=== PATIENT | female | born 1955 | race Caucasian/White ===

== ENCOUNTER 2019-10-14 08:41 | Outpatient (CLI) | payer OTHER | END 2019-10-14 21:07 | disposition home or self-care (01) | LOC: SMA 08:41 | PROVIDERS: ATTEND Internal Medicine | DX: Z12.31 Encounter for screening mammogram for malignant neoplasm of breast (principal) | CPT/HCPCS: 77067 ==

== ENCOUNTER 2019-11-12 21:05 | Inpatient (IN) | payer OTHER ==
[~2019-11-12] VITALS: Ht 161.3 cm; Wt 54.5 kg
--- NOTE | 2019-11-12 21:05 | NUR ---
Placed in room 01 . Placed on cardiac nurse practitioner, blood pressure machine and pulse oximeter. To gown for exam. Side rails up.
--- NOTE | 2019-11-12 21:06 | NUR ---
Pt AAOx4 ambulated into ED c/o R sided numbness and tingling starting from R foot radiating up to R side since 0730 this morning. NIHSS 0. Skin pink dry and warm, breathing even and unlabored. Accucheck 413. No other injuries/complaints per pt/noted. Will continue to monitor.
--- NOTE | 2019-11-12 21:12 | NUR ---
ER at bedside examining patient.
[2019-11-12 21:13] VITALS: BP_SYST 123; BP_SYST 208
--- NOTE | 2019-11-12 21:15 | NUR ---
EKG DONE AT BEDSIDE
--- NOTE | 2019-11-12 21:21 | NUR ---
Verbal order received from Dr. Werner to administer 1 L of NS.
--- NOTE | 2019-11-12 21:21 | NUR ---
Accucheck was done : 413. Dr. Werner made aware.
[2019-11-12] MEDS ORDERED: NACL 0.9% 1,000 ML IV ONE (21:30)
[2019-11-12 21:41] LABS: ANION GAP 8 (5-15); BASOPHILS % (AUTO) 0.6 % (0.0-2.0); CALCIUM 9.7 mg/dL (8.4-11.0); CHLORIDE 95 mmol/L (98-107); CREATININE 0.72 mg/dL (0.55-1.30); EOSINOPHILS # (AUTO) 0.1 K/uL (0.0-0.4); EOSINOPHILS % (AUTO) 1.1 % (0.0-4.0); HEMATOCRIT 43.2 % (36-48); HEMOGLOBIN 14.5 g/dL (12.0-16.0); LYMPHOCYTES # (AUTO) 2.5 K/uL (1.0-5.5); LYMPHOCYTES % (AUTO) 42.7 % (20.5-51.5); MEAN CORPUSCULAR HEMOGLOBIN 30 pg (27-31); MEAN CORPUSCULAR HGB CONC 34 % (32-36); MEAN CORPUSCULAR VOLUME 89 fL (79.0-98.0); MONOCYTES # (AUTO) 0.4 K/uL (0.0-1.0); MONOCYTES % (AUTO) 6.9 % (1.7-9.3); NEUTROPHILS # (AUTO) 2.8 K/uL (1.8-7.7); NEUTROPHILS % (AUTO) 48.7 % (40.0-70.0); PLATELET COUNT (AUTO) 276 K/uL (130-430); POTASSIUM 3.3 mmol/L (3.5-5.1); RED BLOOD CELL COUNT(AUTO) 4.85 MIL/uL (4.2-6.2); RED CELL DISTRIBUTION WIDTH 13.1 % (9.0-15.0); SODIUM SERUM 133 mmol/L (136-145); UREA NITROGEN, BLOOD 16 mg/dL (8-21); WHITE BLOOD COUNT (AUTO) 5.9 K/uL (4.8-10.8)
[2019-11-12 21:48] LABS: ALANINE AMINOTRANSFERASE 34 U/L (12-78); ALBUMIN 4.3 g/dL (3.4-4.8); ASPARTATE AMINOTRANSFERASE 18 U/L (10-37); TOTAL BILIRUBIN 0.2 mg/dL (0.0-1.0)
[2019-11-12 21:54] LABS: ALCOHOL, BLOOD < 3 mg/dL (<10); GFR AFRICAN AMERICAN 105 mL/min (>90); GLUCOSE 439 mg/dL (70-99)
[2019-11-12 22:16] LABS: BILIRUBIN,URINE NEGATIVE (NEGATIVE); BLOOD, URINE NEGATIVE (NEGATIVE); CLARITY/URINE CLEAR (CLEAR); COLOR,URINE YELLOW (YELLOW); GLUCOSE,URINE 3+ (NEGATIVE); KETONES,URINE NEGATIVE (NEGATIVE); LEUKOCYTE ESTERASE ,URINE NEGATIVE (NEGATIVE); NITRITE, URINE NEGATIVE (NEGATIVE); PH,URINE 5.5 (5.0-8.0); PROTEIN URINE NEGATIVE (NEGATIVE); UROBILINOGEN,URINE 0.2 (0.2-1.0)
[2019-11-12 22:24] LABS: BACTERIA,URINE FEW /HPF (None Seen); RBC,URINE 0-3 /HPF (0-3); WBC,URINE 0-3 /HPF (0-3)
[2019-11-12 22:28] LABS: BARBITURATE, URINE NEGATIVE (NEG <=200); BENZODIAZEPINE, URINE NEGATIVE (NEG <=150); CANNABINOID, URINE NEGATIVE (NEG <=50); COCAINE, URINE NEGATIVE (NEG <=150); METHAMPHETAMINES SCREEN,URINE NEGATIVE (NEG <=500); OPIATE, URINE NEGATIVE (NEG <=100); PHENCYCLIDINE SCREEN,URINE NEGATIVE (NEG <=25); UR TRICYCLIC ANTIDEPRESSANTS NEGATIVE (NEG <=300); URINE AMPHETAMINE NEGATIVE (NEG <=500); URINE METHADONE NEGATIVE (NEG <=200); URINE OXYCODONE SCREEN NEGATIVE (NEG <=100); URINE PROPOXYPHENE SCREEN NEGATIVE (NEG <=300)
--- NOTE | 2019-11-12 23:07 | NUR ---
[place] 357. Dr. Gates notified. Pt being taken to [facility] for CT head without contrast.
--- NOTE | 2019-11-12 23:15 | NUR ---
Pt went to CT scan via ambulance. Will cont. to monitor.
--- NOTE | 2019-11-12 23:38 | NUR ---
Care endorsed Ginette ALBARRAN
--- NOTE | 2019-11-12 23:38 | NUR ---
Chacorta gill in [facility] - 11/12/19 at 2338 by [email or web address] Care endorsed to RN
--- NOTE | 2019-11-13 00:30 | NUR ---
patient returned from CT from [facility] in stable condition.
[2019-11-13] MEDS ORDERED: NACL 0.9% 1,000 ML IV ONE (00:45)
[2019-11-13] MEDS ORDERED: ASPIRIN 325 MG TABLET PO ONE (01:00)
--- NOTE | 2019-11-13 01:00 | NUR ---
Patient will be admitted to care of Dr. Anderson. Admitted to Tele unit. Will go to room 128A. Belongings list completed. Complete and up to date summary report printed. SBAR report to be given at bedside with opportunity for questions.
[2019-11-13] MEDS ORDERED: ASPI-1155 PO (01:13)
[2019-11-13] MEDS ORDERED: AMLO2.5T2 PO (01:13)
[2019-11-13] MEDS ORDERED: CANA1TAB6 PO (01:13)
[2019-11-13] MEDS ORDERED: GLIM2TAB2 PO (01:13)
[2019-11-13] MEDS ORDERED: ISOS30TA6 PO (01:13)
[2019-11-13] MEDS ORDERED: LIP80 PO (01:13)
[2019-11-13] MEDS ORDERED: LOSA25TA3 PO (01:13)
--- NOTE | 2019-11-13 01:13 | NUR ---
Pt reports that she is non-compliant to all medications at home. ER MD made aware.
--- NOTE | 2019-11-13 01:13 | NUR ---
m Medication reconciliation completed with information provided by patient. Any prior medication reconciliation on file was reviewed and corrected.
[2019-11-13] MEDS ORDERED: INSULIN REGULAR, HUMAN 10 UNITS/0.1 ML INJ SUBCUT ONE (01:15)
[2019-11-13] MEDS ORDERED: INSULIN REGULAR, HUMAN 10 UNITS/0.1 ML INJ IVP ONE (01:45)
--- NOTE | 2019-11-13 01:53 | NUR ---
ADMISSION: The patient, CORTNEY PHILIPPE, 64 y/o, F admitted by MINERVA MACIAS MD,with the diagnosis of TIA ,to room 128 A, was given written information regarding hospital policies, unit procedures and contact persons.
--- NOTE | 2019-11-13 01:53 | NUR ---
Transfer to Tele via ACLS protocol. Licensed nurse present. IV present no signs or symptoms of infiltration.
[2019-11-13 02:00] VITALS: BP_SYST 149
--- NOTE | 2019-11-13 02:00 | NUR ---
Opening notes Patient alert and oriented x4. No signs of distress noted. Breathing even and unlabored. IV patent and intact, infusing fluids. Patient states she has whole right side body tingling starting from this 0730AM. NIHSS 0. Neurovascular check done. Patient able to wiggle toes. Patient passed rapid swallow screen. No coughing noted. Oriented patient to room and call light. Call light with the patient. Safety precautions in place.
[2019-11-13] MEDS ORDERED: INSULIN GLARGINE 100 UNITS/ML 10 ML VIAL ONE (02:21)
--- NOTE | 2019-11-13 02:37 | NUR ---
CONSULT: CONSULT CALLED FOR LALY WHITTINGTON M. I SPOKE WITH ALAN LOPEZ REASON FOR CONSULT: TIA REQUESTING CONSULT: DR. MACIAS PARQUET FLOOR LAYER'S HELPER PHONE NUMBER: [phone]
--- NOTE | 2019-11-13 04:07 | NUR ---
Sleeping No signs of distress noted. Breathing even and unlabored. IVF infusing well. Call light with the patient. Safety precautions in place.
[2019-11-13] MEDS: INSULIN REGULAR, HUMAN 100 UNITS/ML, 10 ML VIAL (humuLIN R) SUBCUT PRN ×3 (06:38→20:36)
--- NOTE | 2019-11-13 07:05 | NUR ---
Closing notes Patient resting in bed. No signs of distress noted. Breathing even and unlabored. IV patent and intact, Accucheck 225. Insulin given per sliding scale. Patient still complaints of tingling to right side, but has decreased. All needs met. Call light with the patient. Safety precautions in place. Care endorsed to day shift RN.
[2019-11-13 07:40] VITALS: BP_SYST 132
--- NOTE | 2019-11-13 07:40 | NUR ---
INITIAL ROUNDS Received pt AAOx4, no c/o numbness, c/o tingling to right side of her body-especially her hands and feet, no s/s resp distress, no c/o pain or discomfort. Neuro checks completed. Plan of care for the day reviewed with pt-pt verbalized her understanding. Pain management, skin and safety discussed-teach back done. Call light within reach.
[2019-11-13] MEDS: ASPIRIN 81 MG TAB.CHEW PO SCH (08:42)
[2019-11-13] MEDS ORDERED: ISOSORBIDE MONONITRATE 30 MG TAB.ER.24H PO ONE (10:45)
[2019-11-13] MEDS ORDERED: LOSARTAN POTASSIUM 25 MG TABLET PO ONE (10:45)
[2019-11-13] MEDS ORDERED: metFORMIN HCL 500 MG TABLET PO ONE (10:45)
[2019-11-13] MEDS ORDERED: POTASSIUM CHLORIDE 20 MEQ TAB.PRT.SR PO ONE (10:45)
[2019-11-13] MEDS ORDERED: GLIMEPIRIDE 2 MG TABLET PO ONE (10:45)
--- NOTE | 2019-11-13 11:00 | NUR ---
DCPA and Social Service contact: COIL BUILDER met with patient at bedside to conduct a DCPA. Pt. was alert and oriented x3, she was admitted to the floor for tingling and left side weakness. Pt. lives at home with her Maximus Wilson and her children. Employed. Insurance is [employer] [facility] , her PCP is Dr. Anderson. Prior to being admitted Pt. was able to manage her own ADLs and self-care, no Hx of utilizing Home Health or SNF. No DME at home reported. Pt. would like to recover and return home to previous living arrangement. No Social Service concern or inquiry at this time. DCP/CM/SS to remain available as needed.
--- NOTE | 2019-11-13 11:18 | NUR ---
CONSULTATION PAGED/CALLED Reason for Consultation: [] CAD Person Who was Notified: [] LAMINE Consulting Physician: [] DR OLSON Histology Manager Specialty: [] CARDIOLOGY Ordering Physician: [] DR MACIAS
--- NOTE | 2019-11-13 11:57 | NUR ---
PER ATTENDING MD, DR MACIAS, CT SCAN RECORD WAS REQUESTED FROM [facility] DONE BETWEEN 2013 2014. SPOKE TO VERA.
[2019-11-13] MEDS ORDERED: CLOPIDOGREL BISULFATE 75 MG TABLET PO ONE (12:30)
[2019-11-13 12:37] VITALS: BP_SYST 150
[2019-11-13] MEDS: NACL 0.9% 1,000 ML IV SCH (13:53)
[2019-11-13 16:24] VITALS: BP_SYST 112
[2019-11-13] MEDS: metFORMIN HCL 500 MG TABLET PO SCH (18:18)
--- NOTE | 2019-11-13 18:59 | NUR ---
CLOSING NOTE/MD Pt sitting up in bed watching television, no s/s resp distress, no c/o pain or discomfort. Pt seen by Dr. Walls and informed of her test results. IVF infusing well to RFA at ordered rate with no s/s infiltration to site. Needs met, call light within reach.
--- NOTE | 2019-11-13 19:10 | NUR ---
OPENING NOTES Patient awake, AOX4, with family at bedside. No signs of respiratory distress noted. Denies pain and discomfort at this time. IV site, patency noted. Neuro checked done. SCD's operating well. Call light within reach, patient educated to use call light when assistance is needed, patient verbalized understanding. Safety precautions in place. Bed locked and lowest position. Will continue to monitor patient.
[2019-11-13 20:01] VITALS: BP_SYST 137
--- NOTE | 2019-11-13 20:33 | NUR ---
BS 179 Blood sugar checked at this time. 2units of regular insulin given as coverage per order. No signs of respiratory distress noted. Denies pain and discomfort at this time. Safety precautions in place will continue to monitor.
--- NOTE | 2019-11-13 21:00 | NUR ---
MD ROUNDS Patient seen and spoke with Dr. Campos. New orders given. Will carry out.
[2019-11-13 23:09] VITALS: BP_SYST 121
--- NOTE | 2019-11-13 23:45 | NUR ---
RN ROUNDS Patient asleep at this time. No signs of respiratory distress and discomfort noted. Breathing and unlabored. Call light with in reach. SCD's operating . Safety precautions in place. Will continue to monitor patient.
--- NOTE | 2019-11-14 02:29 | NUR ---
RN ROUNDS Patient asleep at this time. No signs of respiratory distress and discomfort noted. Breathing and unlabored. Call light with in reach. SCD's operating. IV fluid infusing well. Safety precautions in place. Will continue to monitor patient.
[2019-11-14] MEDS: NACL 0.9% 1,000 ML IV SCH (04:03)
--- NOTE | 2019-11-14 04:03 | NUR ---
NEW IVF HUNG/VOIDED New IVF hung at this time. Patient ambulates to restroom ,patient voided. Assisted safely back to bed. No signs of respiratory distress and discomfort noted. IVF infusing well, patency noted. Neuro checked and recorded. Call light within reach. Safety precautions in place. Will continue to monitor patient.
--- NOTE | 2019-11-14 06:09 | NUR ---
REFUSED BS CHECKED Patient refused Blood Sugar checked at this time. As per patient verbalized she just had her blood withdrawn, Chemistry panel just taken and A1ac was taken. Patient has no signs of respiratory distress and discomfort noted. Safety precautions in place. Will endorsed to morning shift nurse to monitor blood sugar as patient is in NPO since midnight..
[2019-11-14 06:16] LABS: CALCIUM 9.1 mg/dL (8.4-11.0); CREATININE 0.56 mg/dL (0.55-1.30); POTASSIUM 4.1 mmol/L (3.5-5.1)
--- NOTE | 2019-11-14 06:18 | NUR ---
CLOSING NOTES Patient asleep at this time. No signs of respiratory distress and discomfort noted. Breathing even and unlabored. Refused SCD's at this time, patient ambulatory. Patient kept in NPO since midnight for preparation for the test. IVF infusing well, patency noted. Call light within reach. Bed locked and in lowest position. Safety precautions in place. All needs met throughout the shift. Will continue to monitor until endorsed to morning shift for continuity of care.
[2019-11-14 06:29] LABS: FREE T4 (FREE THYROXINE) 1.3 ng/dL (0.6-1.6); THYROID STIMULATING HORMONE 1.34 uIu/mL (0.34-4.82)
--- NOTE | 2019-11-14 07:00 | NUR ---
OPENING NOTES PT RESTING IN BED. CHEST RISE AND FALL NOTED. NONLABORED BREATHING. IV LINE INTACT, PATENT, NO SIGNS OF INFILTRATION. FLUIDS RUNNING ORDERED PER MD. TOLERATING WELL. BED LOCKED AND IN LOWEST POSITION. ALL NEEDS MET. CALL LIGHT IN REACH. CONTINUE TO MONITOR.
[2019-11-14 08:00] VITALS: BP_SYST 120
[2019-11-14] MEDS: metFORMIN HCL 500 MG TABLET PO SCH ×2 (08:00→16:33)
[2019-11-14] MEDS ORDERED: GLIMEPIRIDE 2 MG TABLET PO SCH (08:00)
[2019-11-14] MEDS: ASPIRIN 81 MG TAB.CHEW PO SCH (08:07)
--- NOTE | 2019-11-14 08:08 | NUR ---
ROUTINE MEDS MEDS ADMINISTERED ORDERED PER MD, EDUCATION GIVEN, TOLERATED WELL. NO ACUTE DISTRESS NOTED. ALL NEEDS MET. CALL LIGHT IN REACH. FALL AND ASPIRATION PRECAUTIONS IN PLACE. CONTINUE TO MONITOR.
[2019-11-14] MEDS ORDERED: CLOPIDOGREL BISULFATE 75 MG TABLET PO SCH (09:00)
[2019-11-14] MEDS ORDERED: ATORVASTATIN 20 MG TABLET PO SCH (09:00)
[2019-11-14] MEDS ORDERED: amLODIPine BESYLATE 5 MG TABLET PO SCH (09:00)
[2019-11-14] MEDS ORDERED: ASPIRIN 81 MG TAB.CHEW PO SCH (09:00)
[2019-11-14] MEDS ORDERED: LOSARTAN POTASSIUM 25 MG TABLET PO SCH (09:00)
[2019-11-14] MEDS ORDERED: ISOSORBIDE MONONITRATE 30 MG TAB.ER.24H PO SCH (09:00)
--- NOTE | 2019-11-14 10:20 | NUR ---
PT TAKEN TO RADIOLOGY FOR STRESS TEST. OFF THE FLOOR.
[2019-11-14] MEDS ORDERED: REGADENOSON 0.4 MG/5 ML SYRINGE IVP ONE (11:00)
--- NOTE | 2019-11-14 11:36 | NUR ---
PATIENT RETURNED TO FLOOR FROM STRESS TEST. PT IN STABLE CONDITION. ALL NEEDS MET. CALL LIGHT IN REACH. CONTINUE TO MONITOR.
--- NOTE | 2019-11-14 12:20 | NUR ---
OFF UNIT PATIENT TAKEN TO RADIOLOGY VIA WHEELCHAIR. PATIENT STABLE
[2019-11-14 12:35] VITALS: BP_SYST 109
--- NOTE | 2019-11-14 12:55 | NUR ---
ON UNIT PATIENT RETURNED FROM RADIOLOGY VIA WHEELCHAIR. PATIENT STABLE. SITTING UP IN CHAIR AT BEDSIDE. DENIES ANY PAIN. NO ACUTE DISTRESS. ALL NEEDS MET. CONT TO MONITOR. CALL LIGHT IN REACH.
[2019-11-14] MEDS ORDERED: ASA81 PO (14:37)
[2019-11-14] MEDS ORDERED: LOSA25TA3 PO (14:37)
[2019-11-14] MEDS ORDERED: CLOP75TA32 PO (14:37)
[2019-11-14] MEDS ORDERED: GLU500 PO (14:37)
[2019-11-14] MEDS ORDERED: LIP20 PO (14:37)
[2019-11-14] MEDS ORDERED: GLIM2TAB2 PO (14:37)
--- NOTE | 2019-11-14 14:55 | NUR ---
ROUNDS PT AWAKE, ALERT, AND ORIENTED. NO ACUTE DISTRESS NOTED. ALL NEEDS MET. CALL LIGHT IN REACH. CONTINUE TO MONITOR.
[2019-11-14 15:19] VITALS: BP_SYST 110
[2019-11-14 16:14] VITALS: BP_SYST 129
--- NOTE | 2019-11-14 16:40 | NUR ---
D/C Patient Patient given medication reconciliation form and D/C instructions. Exit Care provided. Patient verbalized understanding. MD discussed with patient the results and treatment provided. Ambulatory with steady gait for discharge to home. Patient in stable condition, ID band removed. IV catheter removed, intact and dressing applied, no active bleeding. Rx of ASPIRIN, LIPITOR, CLOPIDOGREL, AMARYL, COZAAR, AND GLUCOPHAGE given. Patient educated on pain management. All belongings sent with patient.
--- NOTE | 2019-11-20 13:10 | NUR ---
Discharge Follow Up Phone Call Phoned patient, . The line was busy. Phoned again. There was no answer and voicemail was full.
== END 2019-11-14 16:40 | disposition home or self-care (01) | DRG 65 ==
LOC: SED 21:05 → STU 11-13 01:08
PROVIDERS: ADMIT Internal Medicine; ATTEND Internal Medicine
DX: I63.232 Cerebral infarction due to unspecified occlusion or stenosis of left carotid arteries (principal); E87.1 Hypo-osmolality and hyponatremia; G81.91 Hemiplegia, unspecified affecting right dominant side; E11.65 Type 2 diabetes mellitus with hyperglycemia; E78.00 Pure hypercholesterolemia, unspecified; E78.5 Hyperlipidemia, unspecified; E87.6 Hypokalemia; I10 Essential (primary) hypertension; Z82.49 Family history of ischemic heart disease and other diseases of the circulatory system; Z98.61 Coronary angioplasty status; Z79.82 Long term (current) use of aspirin; Z79.899 Other long term (current) drug therapy
CPT/HCPCS: 36415; 70450-TC; 70551; 71045; 80048; 80053; 80061; 80307; 81000-TC; 82306; 82607; 82962; 83036; 83735-TC; 84439; 84443-TC; 84484; 85025; 93005; 93017; 93306; 93880; 96361; 96374; 97116-GP; 97530-GP; 99285; A9500; G0378; G0482; J1815; J2785; J7030

== ENCOUNTER 2019-12-08 09:37 | Outpatient (CLI) | payer OTHER ==
[~2019-12-08 09:37] MED LIST: ASA81 PO; ASPI-1155 PO; CLOP75TA32 PO; GLIM2TAB2 PO; GLU500 PO; LIP20 PO; LOSA25TA3 PO
[2019-12-08 10:24] LABS: BASOPHILS # (AUTO) 0.1 K/uL (0.0-0.2); BASOPHILS % (AUTO) 0.9 % (0.0-2.0); EOSINOPHILS # (AUTO) 0.1 K/uL (0.0-0.4); EOSINOPHILS % (AUTO) 1.8 % (0.0-4.0); HEMOGLOBIN 13.3 g/dL (12.0-16.0); LYMPHOCYTES # (AUTO) 1.5 K/uL (1.0-5.5); LYMPHOCYTES % (AUTO) 24.6 % (20.5-51.5); MEAN CORPUSCULAR HEMOGLOBIN 30 pg (27-31); MEAN CORPUSCULAR HGB CONC 33 % (32-36); MEAN CORPUSCULAR VOLUME 90 fL (79.0-98.0); MONOCYTES # (AUTO) 0.4 K/uL (0.0-1.0); MONOCYTES % (AUTO) 7.3 % (1.7-9.3); NEUTROPHILS # (AUTO) 3.9 K/uL (1.8-7.7); NEUTROPHILS % (AUTO) 65.4 % (40.0-70.0); PLATELET COUNT (AUTO) 303 K/uL (130-430); RED BLOOD CELL COUNT(AUTO) 4.47 MIL/uL (4.2-6.2); RED CELL DISTRIBUTION WIDTH 12.9 % (9.0-15.0)
[2019-12-08 10:51] LABS: ALBUMIN 3.7 g/dL (3.4-4.8); CALCIUM 9.5 mg/dL (8.4-11.0); CREATININE 0.55 mg/dL (0.55-1.30); POTASSIUM 4.4 mmol/L (3.5-5.1); THYROID STIMULATING HORMONE 1.06 uIu/mL (0.36-3.74); TOTAL BILIRUBIN 0.3 mg/dL (0.0-1.0)
[2019-12-09 17:21] LABS: HEMOGLOBIN A1C 12.5 % (4.8-5.6)
== END 2019-12-08 20:16 | disposition home or self-care (01) ==
LOC: SLB 09:37
PROVIDERS: ATTEND Internal Medicine
DX: E78.5 Hyperlipidemia, unspecified (principal); E11.65 Type 2 diabetes mellitus with hyperglycemia; E56.9 Vitamin deficiency, unspecified
CPT/HCPCS: 36415; 80053; 80061; 82306; 83036; 84443-TC; 85025

== ENCOUNTER → 2020-06-13 | Outpatient (CLI) | payer OTHER ==
[2020-06-13 08:41] LABS: BASOPHILS # (AUTO) 0.1 K/uL (0.0-0.2); EOSINOPHILS # (AUTO) 0.1 K/uL (0.0-0.4); EOSINOPHILS % (AUTO) 2.2 % (0.0-4.0); HEMOGLOBIN 13.2 g/dL (12.0-16.0); LYMPHOCYTES # (AUTO) 1.5 K/uL (1.0-5.5); LYMPHOCYTES % (AUTO) 26.3 % (20.5-51.5); MEAN CORPUSCULAR HEMOGLOBIN 29 pg (27-31); MEAN CORPUSCULAR HGB CONC 34 % (32-36); MEAN CORPUSCULAR VOLUME 87 fL (79.0-98.0); MONOCYTES # (AUTO) 0.4 K/uL (0.0-1.0); MONOCYTES % (AUTO) 6.9 % (1.7-9.3); NEUTROPHILS # (AUTO) 3.7 K/uL (1.8-7.7); NEUTROPHILS % (AUTO) 63.6 % (40.0-70.0); PLATELET COUNT (AUTO) 364 K/uL (130-430); RED BLOOD CELL COUNT(AUTO) 4.49 MIL/uL (4.2-6.2); WHITE BLOOD COUNT (AUTO) 5.8 K/uL (4.8-10.8)
[2020-06-13 08:55] LABS: BILIRUBIN,URINE NEGATIVE (NEGATIVE); BLOOD, URINE NEGATIVE (NEGATIVE); COLOR,URINE YELLOW (YELLOW); GLUCOSE,URINE 1+ (NEGATIVE); KETONES,URINE NEGATIVE (NEGATIVE); LEUKOCYTE ESTERASE ,URINE NEGATIVE (NEGATIVE); NITRITE, URINE NEGATIVE (NEGATIVE); PH,URINE 5.5 (5.0-8.0); PROTEIN URINE NEGATIVE (NEGATIVE); UROBILINOGEN,URINE 0.2 (0.2-1.0)
[2020-06-13 08:59] LABS: CLARITY/URINE SLIGHTLY HAZY (CLEAR)
[2020-06-13 09:14] LABS: ALBUMIN 3.6 g/dL (3.4-4.8); CALCIUM 9.9 mg/dL (8.4-11.0); CREATININE 0.84 mg/dL (0.55-1.30); POTASSIUM 3.9 mmol/L (3.5-5.1); THYROID STIMULATING HORMONE 0.85 uIu/mL (0.34-4.82); TOTAL BILIRUBIN 0.2 mg/dL (0.0-1.0)
== END | disposition home or self-care (01) ==
LOC: SLB 07:35
PROVIDERS: ATTEND Internal Medicine
DX: I10 Essential (primary) hypertension (principal); E11.65 Type 2 diabetes mellitus with hyperglycemia; E78.5 Hyperlipidemia, unspecified
CPT/HCPCS: 36415; 80053; 80061; 81003; 82306; 82607; 83036; 84443-TC; 84550-TC; 85025

== ENCOUNTER → 2021-05-08 | Outpatient (CLI) | payer OTHER ==
[~2021-05-08] MED LIST changes: +GLIM2TAB PO; -GLIM2TAB2 PO
[2021-05-08 09:00] LABS: BASOPHILS % (AUTO) 0.7 % (0.0-2.0); EOSINOPHILS # (AUTO) 0.1 K/uL (0.0-0.4); EOSINOPHILS % (AUTO) 0.7 % (0.0-4.0); HEMATOCRIT 40.8 % (36-48); HEMOGLOBIN 13.8 g/dL (12.0-16.0); LYMPHOCYTES # (AUTO) 1.3 K/uL (1.0-5.5); LYMPHOCYTES % (AUTO) 17.4 % (20.5-51.5); MEAN CORPUSCULAR HEMOGLOBIN 30 pg (27-31); MEAN CORPUSCULAR HGB CONC 34 % (32-36); MEAN CORPUSCULAR VOLUME 88 fL (79.0-98.0); MONOCYTES # (AUTO) 0.5 K/uL (0.0-1.0); MONOCYTES % (AUTO) 6.9 % (1.7-9.3); NEUTROPHILS # (AUTO) 5.6 K/uL (1.8-7.7); NEUTROPHILS % (AUTO) 74.3 % (40.0-70.0); PLATELET COUNT (AUTO) 286 K/uL (130-430); RED BLOOD CELL COUNT(AUTO) 4.64 MIL/uL (4.2-6.2); RED CELL DISTRIBUTION WIDTH 12.5 % (9.0-15.0); WHITE BLOOD COUNT (AUTO) 7.5 K/uL (4.8-10.8)
[2021-05-08 09:07] LABS: BILIRUBIN,URINE NEGATIVE (NEGATIVE); BLOOD, URINE NEGATIVE (NEGATIVE); CLARITY/URINE CLEAR (CLEAR); COLOR,URINE YELLOW (YELLOW); GLUCOSE,URINE 3+ (NEGATIVE); KETONES,URINE NEGATIVE (NEGATIVE); LEUKOCYTE ESTERASE ,URINE NEGATIVE (NEGATIVE); NITRITE, URINE NEGATIVE (NEGATIVE); PROTEIN URINE NEGATIVE (NEGATIVE); UROBILINOGEN,URINE 0.2 (0.2-1.0)
[2021-05-08 09:36] LABS: BACTERIA,URINE None Seen /HPF (None Seen); RBC,URINE 0-3 /HPF (0-3); WBC,URINE 0-3 /HPF (0-3)
[2021-05-08 09:40] LABS: ALBUMIN 3.8 g/dL (3.4-4.8); CALCIUM 9.2 mg/dL (8.4-11.0); CREATININE 0.68 mg/dL (0.55-1.30); POTASSIUM 4.7 mmol/L (3.5-5.1); THYROID STIMULATING HORMONE 0.73 uIu/mL (0.34-4.82); TOTAL BILIRUBIN 0.4 mg/dL (0.0-1.0)
== END | disposition home or self-care (01) ==
LOC: SLB 07:58
PROVIDERS: ATTEND Internal Medicine
DX: I10 Essential (primary) hypertension (principal); E11.65 Type 2 diabetes mellitus with hyperglycemia; E78.5 Hyperlipidemia, unspecified; E55.9 Vitamin D deficiency, unspecified; E56.9 Vitamin deficiency, unspecified
CPT/HCPCS: 36415; 80053; 80061; 81000; 82306; 82607; 83036; 84443; 85025

== ENCOUNTER 2021-06-27 12:07 | Outpatient (CLI) | payer OTHER ==
[2021-06-27 13:09] LABS: BASOPHILS # (AUTO) 0.1 K/uL (0.0-0.2); BASOPHILS % (AUTO) 0.6 % (0.0-2.0); EOSINOPHILS # (AUTO) 0.1 K/uL (0.0-0.4); EOSINOPHILS % (AUTO) 0.8 % (0.0-4.0); HEMOGLOBIN 13.3 g/dL (12.0-16.0); LYMPHOCYTES # (AUTO) 2.1 K/uL (1.0-5.5); LYMPHOCYTES % (AUTO) 25.7 % (20.5-51.5); MEAN CORPUSCULAR HEMOGLOBIN 30 pg (27-31); MEAN CORPUSCULAR HGB CONC 34 % (32-36); MEAN CORPUSCULAR VOLUME 89 fL (79.0-98.0); MONOCYTES # (AUTO) 0.5 K/uL (0.0-1.0); MONOCYTES % (AUTO) 6.1 % (1.7-9.3); NEUTROPHILS # (AUTO) 5.6 K/uL (1.8-7.7); NEUTROPHILS % (AUTO) 66.8 % (40.0-70.0); PLATELET COUNT (AUTO) 308 K/uL (130-430); RED BLOOD CELL COUNT(AUTO) 4.41 MIL/uL (4.2-6.2); RED CELL DISTRIBUTION WIDTH 12.8 % (9.0-15.0); WHITE BLOOD COUNT (AUTO) 8.3 K/uL (4.8-10.8)
[2021-06-27 13:22] LABS: ALBUMIN 3.7 g/dL (3.4-4.8); CALCIUM 9.7 mg/dL (8.4-11.0); CREATININE 0.83 mg/dL (0.55-1.30); POTASSIUM 4.6 mmol/L (3.5-5.1); TOTAL BILIRUBIN 0.2 mg/dL (0.0-1.0)
== END 2021-06-27 19:23 | disposition home or self-care (01) ==
LOC: SLB 12:07
PROVIDERS: ATTEND Internal Medicine
DX: R53.83 Other fatigue (principal)
CPT/HCPCS: 36415; 80053; 85025

== ENCOUNTER 2021-11-20 07:16 | Outpatient (CLI) | payer OTHER ==
[2021-11-20 08:49] LABS: CALCIUM 9.4 mg/dL (8.4-11.0); CREATININE 0.58 mg/dL (0.55-1.30); POTASSIUM 4.1 mmol/L (3.5-5.1)
[2021-11-20 11:24] LABS: BILIRUBIN,URINE NEGATIVE (NEGATIVE); BLOOD, URINE NEGATIVE (NEGATIVE); CLARITY/URINE CLEAR (CLEAR); COLOR,URINE YELLOW (YELLOW); GLUCOSE,URINE 3+ (NEGATIVE); KETONES,URINE NEGATIVE (NEGATIVE); LEUKOCYTE ESTERASE ,URINE NEGATIVE (NEGATIVE); NITRITE, URINE NEGATIVE (NEGATIVE); PROTEIN URINE NEGATIVE (NEGATIVE); UROBILINOGEN,URINE 0.2 (0.2-1.0)
[2021-11-20 14:09] LABS: BACTERIA,URINE RARE /HPF (None Seen); RBC,URINE NONE SEEN /HPF (0-3); WBC,URINE 0-3 /HPF (0-3)
== END 2021-11-20 20:28 | disposition home or self-care (01) ==
LOC: SLB 07:16
PROVIDERS: ATTEND Internal Medicine
DX: E11.65 Type 2 diabetes mellitus with hyperglycemia (principal); N30.90 Cystitis, unspecified without hematuria
CPT/HCPCS: 36415; 80048; 80061; 81000; 83036; 87086

== ENCOUNTER 2022-03-11 18:25 | Emergency (ER) | payer OTHER ==
[~2022-03-11] VITALS: Ht 160 cm; Wt 49.9 kg
--- NOTE | 2022-03-11 18:25 | NUR ---
Code stroke initiated. BIB coworker in wheelchair re R facial droop and slurred speech. Face to face assessment done immediately per Dr Kirkland. Pt's BP taken immediately.
--- NOTE | 2022-03-11 18:26 | NUR ---
Pt to CT scan via wheelchair.
--- NOTE | 2022-03-11 18:27 | NUR ---
Code stroke paperwork initiated per Мария ALBARRAN. Paperwork provided to Atul ALBARRAN (primary RN) to continue documentation. Understanding verbalized of proper documentation.
[2022-03-11] MEDS ORDERED: hydrALAZINE HCL 20 MG/ML VIAL IVP ONE (18:30)
[2022-03-11 18:47] VITALS: BP_SYST 196
[2022-03-11] MEDS ORDERED: ASPIRIN 325 MG TABLET PO ONE (19:00)
[2022-03-11] MEDS ORDERED: SIMVASTATIN 40 MG TABLET PO ONE (19:00)
--- NOTE | 2022-03-11 19:11 | NUR ---
In ER bed 2. BP elevated Blood sugar elevated. C/O numbness R arm and Slurred speach Sent To CT brain Back now has reviewed result and spoken to Neurology
[2022-03-11 19:12] LABS: BASOPHILS # (AUTO) 0.1 K/uL (0.0-0.2); BASOPHILS % (AUTO) 1.4 % (0.0-2.0); EOSINOPHILS # (AUTO) 0.1 K/uL (0.0-0.4); EOSINOPHILS % (AUTO) 0.7 % (0.0-4.0); HEMATOCRIT 38.1 % (36-48); HEMOGLOBIN 12.8 g/dL (12.0-16.0); LYMPHOCYTES % (AUTO) 23.8 % (20.5-51.5); MEAN CORPUSCULAR HEMOGLOBIN 29 pg (27-31); MEAN CORPUSCULAR HGB CONC 34 % (32-36); MEAN CORPUSCULAR VOLUME 87 fL (79.0-98.0); MONOCYTES # (AUTO) 0.7 K/uL (0.0-1.0); MONOCYTES % (AUTO) 7.8 % (1.7-9.3); NEUTROPHILS # (AUTO) 5.7 K/uL (1.8-7.7); NEUTROPHILS % (AUTO) 66.3 % (40.0-70.0); PLATELET COUNT (AUTO) 394 K/uL (130-430); RED BLOOD CELL COUNT(AUTO) 4.38 MIL/uL (4.2-6.2); RED CELL DISTRIBUTION WIDTH 13.1 % (9.0-15.0); WHITE BLOOD COUNT (AUTO) 8.6 K/uL (4.8-10.8)
[2022-03-11 19:19] LABS: CREATININE 1.01 mg/dL (0.55-1.30); POTASSIUM 3.9 mmol/L (3.5-5.1)
[2022-03-11] MEDS ORDERED: INSULIN REGULAR, HUMAN 10 UNITS/0.1 ML INJ IVP ONE (19:30)
[2022-03-11 19:37] LABS: ALBUMIN 3.6 g/dL (3.4-4.8); TOTAL BILIRUBIN 0.1 mg/dL (0.0-1.0)
[2022-03-11] MEDS ORDERED: SIMVASTATIN 40 MG TABLET ONE (20:01)
[2022-03-11] MEDS ORDERED: TENECTEPLASE 50 MG VIAL IV ONE ×2 (21:15→22:00)
[2022-03-11] MEDS ORDERED: IOHEXOL 350 mgI/mL, 150 ML INFUS..BTL IV ONE (21:35)
--- NOTE | 2022-03-11 22:02 | NUR ---
Taken to CT for imaging
--- NOTE | 2022-03-11 22:10 | NUR ---
Confirmed dosing instructions with pharmacist prior to administration. TNKase 2.5 ml (12.5 mg) given via IVP over 10 seconds. Pt on traffic monitor specialist. VS taken prior to administration. Consent formed received for TNKase administration from patient.
--- NOTE | 2022-03-11 22:25 | NUR ---
VS being monitored Q 15 min post TNKase administration. Tolerating well. Myself, AVIS damian, remained at bedside.
--- NOTE | 2022-03-11 22:30 | NUR ---
[facility] ambulance arrived for transfer. CCT nurse made aware of TNKase administration at 2210 and to continue monitoring Q15 min. Pt continue tolerating well. No change in condition noted.
--- NOTE | 2022-03-11 22:39 | NUR ---
Patient to be transferred to [facility]. Is being transferred due to higher level of care. Receiving facility has accepting physician and available space. ER physician has signed transfer form. Patient or responsible alliance party has agreed to transfer and signed form. Patient belongings inventoried and will be sent with patient. Copy of nursing notes, lab reports, EKG, Physicians Orders and X-rays to be sent with patient. Report called to AVIS Bailey at receiving facility. Receiving physician is Dr Harmon. [facility] ambulance service has been called for transfer. Transport at bedside at this time.
[2022-03-11] MEDS ORDERED: SODIUM ZIRCONIUM CYCLOSILICATE 10 GM POWD.PACK PO ONE (22:55)
[2022-03-11 23:18] VITALS: BP_SYST 176
== END 2022-03-11 22:39 | disposition short-term general hospital (02) ==
LOC: SED 18:25
DX: I63.89 Other cerebral infarction (principal); E11.65 Type 2 diabetes mellitus with hyperglycemia; I10 Essential (primary) hypertension; Z79.899 Other long term (current) drug therapy; Z20.822 Contact with and (suspected) exposure to COVID-19
CPT/HCPCS: 36415; 70450; 70496; 70498; 71045; 76376; 80053; 82962; 85025; 87426; 93005; 96372; 96374; 96375; 99291; J0360; J1815; Q9967; J3101

== ENCOUNTER 2022-07-16 08:05 | Outpatient (CLI) | payer OTHER ==
[2022-07-16 12:07] LABS: ALBUMIN 3.9 g/dL (3.4-4.8); CALCIUM 9.8 mg/dL (8.4-11.0); CREATININE 0.67 mg/dL (0.55-1.30); POTASSIUM 4.2 mmol/L (3.5-5.1); THYROID STIMULATING HORMONE 0.87 uIu/mL (0.36-3.74); TOTAL BILIRUBIN 0.4 mg/dL (0.0-1.0)
[2022-07-16 14:34] LABS: BILIRUBIN,URINE NEGATIVE (NEGATIVE); BLOOD, URINE NEGATIVE (NEGATIVE); COLOR,URINE YELLOW (YELLOW); GLUCOSE,URINE NEGATIVE (NEGATIVE); KETONES,URINE NEGATIVE (NEGATIVE); LEUKOCYTE ESTERASE ,URINE TRACE (NEGATIVE); NITRITE, URINE NEGATIVE (NEGATIVE); PH,URINE 5.5 (5.0-8.0); PROTEIN URINE NEGATIVE (NEGATIVE); UROBILINOGEN,URINE 0.2 (0.2-1.0)
[2022-07-16 14:58] LABS: CLARITY/URINE SLIGHTLY CLOUDY (CLEAR)
[2022-07-16 15:37] LABS: BASOPHILS # (AUTO) 0.1 K/uL (0.0-0.2); BASOPHILS % (AUTO) 1.1 % (0.0-2.0); EOSINOPHILS # (AUTO) 0.1 K/uL (0.0-0.4); EOSINOPHILS % (AUTO) 0.9 % (0.0-4.0); HEMATOCRIT 37.1 % (36-48); LYMPHOCYTES # (AUTO) 1.4 K/uL (1.0-5.5); LYMPHOCYTES % (AUTO) 21.4 % (20.5-51.5); MEAN CORPUSCULAR VOLUME 89 fL (79.0-98.0); MONOCYTES # (AUTO) 0.6 K/uL (0.0-1.0); MONOCYTES % (AUTO) 9.2 % (1.7-9.3); NEUTROPHILS # (AUTO) 4.3 K/uL (1.8-7.7); NEUTROPHILS % (AUTO) 67.4 % (40.0-70.0); PLATELET COUNT (AUTO) 372 K/uL (130-430); RED BLOOD CELL COUNT(AUTO) 4.19 MIL/uL (4.2-6.2); RED CELL DISTRIBUTION WIDTH 13.2 % (9.0-15.0); WHITE BLOOD COUNT (AUTO) 6.4 K/uL (4.8-10.8)
[2022-07-16 15:47] LABS: BACTERIA,URINE None Seen /HPF (None Seen); RBC,URINE NONE SEEN /HPF (0-3)
[2022-07-16 15:48] LABS: MUCUS,URINE 2+ /LPF (None Seen); URINE AMORPHOUS URATE 1+ /HPF (None Seen)
== END 2022-07-16 19:09 | disposition home or self-care (01) ==
LOC: SLB 08:05
PROVIDERS: ATTEND Internal Medicine
DX: E11.65 Type 2 diabetes mellitus with hyperglycemia (principal); E78.5 Hyperlipidemia, unspecified; E55.9 Vitamin D deficiency, unspecified; E56.9 Vitamin deficiency, unspecified; I10 Essential (primary) hypertension
CPT/HCPCS: 36415; 80053; 80061; 81000; 82306; 82607; 83036; 84443; 85025

== ENCOUNTER 2022-08-13 00:48 | Emergency (ER) | payer OTHER ==
[~2022-08-13] VITALS: Ht 160 cm; Wt 47.6 kg
[2022-08-13 00:56] VITALS: BP_SYST 183
--- NOTE | 2022-08-13 00:59 | NUR ---
PATIENT STATES SHE HAS BEEN DIZZY AND WEAK X 1 HOUR WITH NAUSEA. NO VOMITING.
--- NOTE | 2022-08-13 01:01 | NUR ---
PATIENT TO BED 3 FOR EVAL, REPORT GIVEN TO AVIS YOON.
--- NOTE | 2022-08-13 01:02 | NUR ---
ER Dr. OHARA at bedside examining patient.
[2022-08-13] MEDS ORDERED: ONDANSETRON HCL 4 MG/2 ML VIAL IVP ONE (01:15)
[2022-08-13] MEDS ORDERED: LABETALOL HCL 20 MG/4 ML CARTRIDGE IVP ONE (01:15)
--- NOTE | 2022-08-13 01:15 | NUR ---
# 20 gauge angiocath placed to LFA. Use of asceptic technique. Opsite placed over site. Blood return noted. Blood for lab drawn from site. Flushed with 10 cc of normal saline. No evidence of infiltration noted. Patient tolerated well.
--- NOTE | 2022-08-13 01:20 | NUR ---
EKG performed at BS by SANDRA GAMEZ. Physician given copy of EKG for review.
[2022-08-13 01:34] LABS: HEMATOCRIT 37.4 % (36-48); RED CELL DISTRIBUTION WIDTH 12.9 % (9.0-15.0)
--- NOTE | 2022-08-13 01:34 | NUR ---
LABETALOL IVP HELD FOR NOW. BP= 148/95, HR=72BPM. DR. OHARA MADE AWARE.
[2022-08-13 01:38] LABS: BASOPHILS # (AUTO) 0.1 K/uL (0.0-0.2); BASOPHILS % (AUTO) 0.9 % (0.0-2.0); EOSINOPHILS # (AUTO) 0.1 K/uL (0.0-0.4); EOSINOPHILS % (AUTO) 1.2 % (0.0-4.0); HEMOGLOBIN 12.9 g/dL (12.0-16.0); LYMPHOCYTES # (AUTO) 2.4 K/uL (1.0-5.5); LYMPHOCYTES % (AUTO) 34.6 % (20.5-51.5); MEAN CORPUSCULAR HEMOGLOBIN 30 pg (27-31); MEAN CORPUSCULAR HGB CONC 34 % (32-36); MEAN CORPUSCULAR VOLUME 87 fL (79.0-98.0); MONOCYTES # (AUTO) 0.6 K/uL (0.0-1.0); MONOCYTES % (AUTO) 8.5 % (1.7-9.3); NEUTROPHILS # (AUTO) 3.8 K/uL (1.8-7.7); NEUTROPHILS % (AUTO) 54.8 % (40.0-70.0); PLATELET COUNT (AUTO) 334 K/uL (130-430); RED BLOOD CELL COUNT(AUTO) 4.31 MIL/uL (4.2-6.2); WHITE BLOOD COUNT (AUTO) 6.9 K/uL (4.8-10.8)
--- NOTE | 2022-08-13 01:40 | NUR ---
Urine specimen collected & SENT TO LAB.
[2022-08-13 01:42] LABS: ANION GAP 4 (5-15); CALCIUM 9.7 mg/dL (8.4-11.0); CHLORIDE 105 mmol/L (98-107); CREATININE 0.78 mg/dL (0.55-1.30); GLUCOSE 205 mg/dL (70-99); POTASSIUM 3.8 mmol/L (3.5-5.1); UREA NITROGEN, BLOOD 20 mg/dL (8-21)
[2022-08-13 01:50] LABS: ALANINE AMINOTRANSFERASE 29 U/L (12-78); ALBUMIN 4.1 g/dL (3.4-4.8); ASPARTATE AMINOTRANSFERASE 17 U/L (10-37); TOTAL BILIRUBIN 0.2 mg/dL (0.0-1.0)
[2022-08-13 01:55] LABS: GFR AFRICAN AMERICAN 95 mL/min (>90)
[2022-08-13] MEDS ORDERED: MECLIZINE HCL 25 MG TABLET (ANITVERT) PO ONE (02:15)
[2022-08-13 02:30] LABS: BILIRUBIN,URINE NEGATIVE (NEGATIVE); BLOOD, URINE NEGATIVE (NEGATIVE); CLARITY/URINE CLEAR (CLEAR); COLOR,URINE YELLOW (YELLOW); GLUCOSE,URINE NEGATIVE (NEGATIVE); KETONES,URINE NEGATIVE (NEGATIVE); LEUKOCYTE ESTERASE ,URINE NEGATIVE (NEGATIVE); NITRITE, URINE NEGATIVE (NEGATIVE); PROTEIN URINE NEGATIVE (NEGATIVE); UROBILINOGEN,URINE 0.2 (0.2-1.0)
[2022-08-13] MEDS ORDERED: NACL 0.9% 1,000 ML IV ONE (02:30)
--- NOTE | 2022-08-13 02:40 | NUR ---
PT VERBALIZED FEELING BETTER AND THAT ZOFRAN REALLY HELPED ALOT W/ HER NAUSEA.
[2022-08-13] MEDS ORDERED: ONDA-8 TL (03:01)
[2022-08-13 03:12] VITALS: BP_SYST 128
--- NOTE | 2022-08-13 03:14 | NUR ---
Patient given written and verbal discharge instructions and verbalizes understanding. ER MD discussed with patient the results and treatment provided. Patient in stable condition. AMBULATORY W/ STEADY GAIT. ID arm band removed. IV catheter removed intact and dressing applied, no active bleeding. Rx of ZOFRAN given. Patient educated on pain management and to follow up with PMD. Pain Scale 0/10. Opportunity for questions provided and answered. Medication side effect fact sheet provided.
== END 2022-08-13 03:14 | disposition home or self-care (01) ==
LOC: SED 00:48
DX: I10 Essential (primary) hypertension (principal); R42 Dizziness and giddiness; R11.0 Nausea; R53.1 Weakness; E11.9 Type 2 diabetes mellitus without complications; Z79.899 Other long term (current) drug therapy
CPT/HCPCS: 99285; 96374; 71045; 96361; 80053; 83880; 85025; 84484; 36415; 93005; 81003; J8597; J2405; J7030

== ENCOUNTER 2023-03-31 08:32 | Outpatient (CLI) | payer OTHER ==
[~2023-03-31 08:32] MED LIST changes: +ONDA-8 TL
[2023-03-31 09:12] LABS: BASOPHILS # (AUTO) 0.1 K/uL (0.0-0.2); BASOPHILS % (AUTO) 0.8 % (0.0-2.0); EOSINOPHILS # (AUTO) 0.1 K/uL (0.0-0.4); EOSINOPHILS % (AUTO) 1.2 % (0.0-4.0); HEMATOCRIT 37.8 % (36-48); HEMOGLOBIN 12.7 g/dL (12.0-16.0); LYMPHOCYTES # (AUTO) 1.4 K/uL (1.0-5.5); LYMPHOCYTES % (AUTO) 16.3 % (20.5-51.5); MEAN CORPUSCULAR HEMOGLOBIN 29 pg (27-31); MEAN CORPUSCULAR HGB CONC 34 % (32-36); MEAN CORPUSCULAR VOLUME 88 fL (79.0-98.0); MONOCYTES # (AUTO) 0.6 K/uL (0.0-1.0); MONOCYTES % (AUTO) 6.6 % (1.7-9.3); NEUTROPHILS # (AUTO) 6.4 K/uL (1.8-7.7); NEUTROPHILS % (AUTO) 75.1 % (40.0-70.0); PLATELET COUNT (AUTO) 302 K/uL (130-430); RED BLOOD CELL COUNT(AUTO) 4.32 MIL/uL (4.2-6.2); RED CELL DISTRIBUTION WIDTH 13.3 % (9.0-15.0); WHITE BLOOD COUNT (AUTO) 8.5 K/uL (4.8-10.8)
[2023-03-31 09:21] LABS: BILIRUBIN,URINE NEGATIVE (NEGATIVE); BLOOD, URINE NEGATIVE (NEGATIVE); CLARITY/URINE CLEAR (CLEAR); COLOR,URINE YELLOW (YELLOW); GLUCOSE,URINE 1+ (NEGATIVE); KETONES,URINE NEGATIVE (NEGATIVE); LEUKOCYTE ESTERASE ,URINE NEGATIVE (NEGATIVE); NITRITE, URINE NEGATIVE (NEGATIVE); PROTEIN URINE NEGATIVE (NEGATIVE); UROBILINOGEN,URINE 0.2 (0.2-1.0)
[2023-03-31 09:38] LABS: ALBUMIN 3.6 g/dL (3.4-4.8); CALCIUM 8.8 mg/dL (8.4-11.0); CREATININE 0.59 mg/dL (0.55-1.30); TOTAL BILIRUBIN 0.2 mg/dL (0.0-1.0)
== END 2023-03-31 19:00 | disposition home or self-care (01) ==
LOC: SLB 08:32
PROVIDERS: ATTEND Internal Medicine
DX: E11.65 Type 2 diabetes mellitus with hyperglycemia (principal); I10 Essential (primary) hypertension; E03.9 Hypothyroidism, unspecified; E55.9 Vitamin D deficiency, unspecified; E56.9 Vitamin deficiency, unspecified
CPT/HCPCS: 36415; 80053; 80061; 81003; 82306; 82607; 83037; 84443; 85025

== ENCOUNTER 2023-07-26 09:19 | Outpatient (CLI) | payer OTHER ==
[~2023-07-26 09:19] MED LIST changes: +LOSA-412 PO; -LOSA25TA3 PO
[2023-07-26 10:10] LABS: BASOPHILS # (AUTO) 0.1 K/uL (0.0-0.2); BASOPHILS % (AUTO) 0.7 % (0.0-2.0); EOSINOPHILS # (AUTO) 0.1 K/uL (0.0-0.4); EOSINOPHILS % (AUTO) 1.5 % (0.0-4.0); HEMATOCRIT 37.9 % (36-48); HEMOGLOBIN 12.3 g/dL (12.0-16.0); LYMPHOCYTES # (AUTO) 1.6 K/uL (1.0-5.5); LYMPHOCYTES % (AUTO) 21.2 % (20.5-51.5); MEAN CORPUSCULAR HEMOGLOBIN 28 pg (27-31); MEAN CORPUSCULAR HGB CONC 32 % (32-36); MEAN CORPUSCULAR VOLUME 88 fL (79.0-98.0); MONOCYTES # (AUTO) 0.5 K/uL (0.0-1.0); MONOCYTES % (AUTO) 6.6 % (1.7-9.3); NEUTROPHILS # (AUTO) 5.3 K/uL (1.8-7.7); PLATELET COUNT (AUTO) 348 K/uL (130-430); RED BLOOD CELL COUNT(AUTO) 4.31 MIL/uL (4.2-6.2); RED CELL DISTRIBUTION WIDTH 13.3 % (9.0-15.0); WHITE BLOOD COUNT (AUTO) 7.5 K/uL (4.8-10.8)
[2023-07-26 10:31] LABS: HEMOGLOBIN A1C 7.99 % (<5.7)
[2023-07-26 11:13] LABS: ALBUMIN 3.5 g/dL (3.4-4.8); CALCIUM 8.7 mg/dL (8.4-11.0); CREATININE 0.52 mg/dL (0.55-1.30); POTASSIUM 4.4 mmol/L (3.5-5.1); THYROID STIMULATING HORMONE 0.82 uIu/mL (0.34-4.82); TOTAL BILIRUBIN 0.3 mg/dL (0.0-1.0); TOTAL PROTEIN, SERUM 7.8 g/dL (6.4-8.3)
== END 2023-07-26 19:42 | disposition home or self-care (01) ==
LOC: SLB 09:19
PROVIDERS: ATTEND Internal Medicine
DX: E11.65 Type 2 diabetes mellitus with hyperglycemia (principal); E78.5 Hyperlipidemia, unspecified; E55.9 Vitamin D deficiency, unspecified; E56.9 Vitamin deficiency, unspecified; I10 Essential (primary) hypertension
CPT/HCPCS: 36415; 80053; 80061; 82306; 82607; 83037; 84443; 85025

== ENCOUNTER 2023-08-17 00:36 | Emergency (ER) | payer OTHER ==
[~2023-08-17] VITALS: Ht 160 cm; Wt 49.4 kg
[2023-08-17 01:23] VITALS: BP_SYST 163; PULSE 66; RESP 16; TEMP 97.1; O2SAT 100
[2023-08-17] MEDS ORDERED: HYDC1% TP (01:26)
[2023-08-17] MEDS ORDERED: DIPH25CA83 PO (01:26)
[2023-08-17] MEDS ORDERED: FAMO20TA8 PO (01:26)
[2023-08-17] MEDS ORDERED: PRED20TA PO (01:26)
[2023-08-17 01:35] VITALS: BP_SYST 163; PULSE 66; RESP 16; TEMP 97.1; O2SAT 100
== END 2023-08-17 01:35 | disposition home or self-care (01) ==
LOC: SED 00:36
DX: L25.9 Unspecified contact dermatitis, unspecified cause (principal); R21 Rash and other nonspecific skin eruption; E11.9 Type 2 diabetes mellitus without complications; I10 Essential (primary) hypertension; Z79.899 Other long term (current) drug therapy
CPT/HCPCS: 99283

== ENCOUNTER 2023-12-15 07:26 | Outpatient (CLI) | payer OTHER ==
[~2023-12-15 07:26] MED LIST changes: +DIPH25CA83 PO; +FAMO20TA8 PO; +HYDC1% TP; +PRED20TA PO
[2023-12-15 08:16] LABS: BASOPHILS % (AUTO) 0.6 % (0.0-2.0); EOSINOPHILS # (AUTO) 0.1 K/uL (0.0-0.4); EOSINOPHILS % (AUTO) 1.3 % (0.0-4.0); HEMATOCRIT 36.1 % (36-48); HEMOGLOBIN 12.2 g/dL (12.0-16.0); LYMPHOCYTES # (AUTO) 1.7 K/uL (1.0-5.5); LYMPHOCYTES % (AUTO) 28.5 % (20.5-51.5); MEAN CORPUSCULAR HEMOGLOBIN 30 pg (27-31); MEAN CORPUSCULAR HGB CONC 34 % (32-36); MEAN CORPUSCULAR VOLUME 88 fL (79.0-98.0); MONOCYTES # (AUTO) 0.5 K/uL (0.0-1.0); MONOCYTES % (AUTO) 7.7 % (1.7-9.3); NEUTROPHILS # (AUTO) 3.8 K/uL (1.8-7.7); NEUTROPHILS % (AUTO) 61.9 % (40.0-70.0); PLATELET COUNT (AUTO) 327 K/uL (130-430); RED BLOOD CELL COUNT(AUTO) 4.12 MIL/uL (4.2-6.2); RED CELL DISTRIBUTION WIDTH 13.3 % (9.0-15.0); WHITE BLOOD COUNT (AUTO) 6.1 K/uL (4.8-10.8)
[2023-12-15 08:18] LABS: BILIRUBIN,URINE NEGATIVE (NEGATIVE); BLOOD, URINE NEGATIVE (NEGATIVE); CLARITY/URINE CLEAR (CLEAR); COLOR,URINE YELLOW (YELLOW); GLUCOSE,URINE NEGATIVE (NEGATIVE); KETONES,URINE TRACE (NEGATIVE); LEUKOCYTE ESTERASE ,URINE NEGATIVE (NEGATIVE); NITRITE, URINE NEGATIVE (NEGATIVE); PH,URINE 5.5 (5.0-8.0); PROTEIN URINE NEGATIVE (NEGATIVE); UROBILINOGEN,URINE 0.2 (0.2-1.0)
[2023-12-15 08:38] LABS: HEMOGLOBIN A1C 7.56 % (<5.7)
[2023-12-15 09:06] LABS: POTASSIUM 3.9 mmol/L (3.5-5.1)
[2023-12-15 09:07] LABS: ALBUMIN 3.7 g/dL (3.4-4.8); CALCIUM 9.8 mg/dL (8.4-11.0); CREATININE 0.57 mg/dL (0.55-1.30); THYROID STIMULATING HORMONE 1.36 uIu/mL (0.34-4.82); TOTAL BILIRUBIN 0.3 mg/dL (0.0-1.0)
== END 2023-12-15 19:24 | disposition home or self-care (01) ==
LOC: SLB 07:26
PROVIDERS: ATTEND Internal Medicine
DX: E11.65 Type 2 diabetes mellitus with hyperglycemia (principal); I10 Essential (primary) hypertension; E78.5 Hyperlipidemia, unspecified; E56.9 Vitamin deficiency, unspecified
CPT/HCPCS: 36415; 80053; 80061; 81001; 81003; 83037; 84443; 85025